=== PATIENT | male | born 1960 | race Caucasian/White ===

== ENCOUNTER 2023-03-10 00:09 | Emergency (ER) | payer OTHER, SELFPAY ==
--- NOTE | 2023-03-10 00:47 | ED_ITS ---
HPI - CPR General: Chief Complaint: Cardiac Arrest/CPR Stated Complaint: RESP. DISTRESS Source: family and EMS History of Present Illness: 62-year-old male who collapsed outside his family's home. Family heard a collapse. They waited a couple of minutes before checking on the patient. The patient appeared to be breathing at first per family they called 911, CPR was started 10 minutes or so later. ACLS crew arrived 15 minutes after collapse, and started ACLS protocol. He has received 6 mg of epinephrine in the field along with chest compressions and intubation using an i-gel device with good breath sounds. Paramedics note no availability of pulse ox, but CO2 ranges by end-tidal of 35 or so. The patient has been in either asystole or PEA rhythm since placed on the monitor. They have not obtained a pulse at any point. In discussion with family, the patient has a history of coronary disease status post three-vessel CABG 7 or 8 years ago. He evidently had a test recently showing that at least 2 of the vessels were clogged MD complaint: found unresponsive and collapsed during activity Onset (ago): minute(s) (45) Timing confirmed by: other (EMS) Place: other (Family home) AED applied by bystander/welder first class: Yes Shock advised: No Downtime before ACLS arrival (mins): 15 Initial findings in the field: unresponsive, no respirations and no pulse ROSC in the field: No Associated injuries: No Associated symptoms: other Known history of: CAD Treatments prior to arrival: other airway device, chest compressions and epinephrine mgs # (6) Review of Systems General: Reports: ROS unobtainable due to medical condition Physical Exam Const: GENERAL APPEARANCE: patient mechanically ventilated ORIENTATION/CONSCIOUSNESS: Yes Other orientation findings (Unresponsive) HENMT: COMMON NORMALS: normocephalic and Normal external nose present HEAD & SCALP: normocephalic FACE & SINUS: normal facial exam NOSE: Normal external nose present Eye: PUPIL: Yes Dilated pupils and Yes Fixed pupils Neck/C-Spine: GENERAL: Yes trachea midline Chest: CHEST: Yes Symmetrical chest wall rise Resp: AUSCULTATION: rhonchi Cardio: PERIPHERAL PULSES: femoral pulses not present GI: INSPECTION: Yes abdominal distension Neuro: ALBERTO COMA SCALE: document GCS findings Alberto coma scale eye opening: None Goldsmith coma scale verbal response: None Goldsmith coma scale motor response: None Alberto coma scale total score: 3 MDM - Cardiac Arrest/CPR Medical Decision Making The patient received good CPR per ACLS protocol in route. There had been no rhythm changes. He received another 3 rounds of CPR with 2 more milligrams of epinephrine in the ER here as well as some bicarbonate. He had good breath sounds on arrival, and pulse ox was generating 100% with CPR. Because of this, I gel device was left in as opposed to endotracheal intubation which would have caused a pause and CPR. Despite continued CPR in the ER, there were no rhythm changes. He remained in PEA throughout the ACLS process. I spoke with the patient's brother who was representing family in the lobby while CPR continued. With no change in rhythm it was advised that we stop PCR. He consented. I talked with the patient's over the phone, as they are from out of town, and relayed expiration to her. Time of pronounced 00:19 Critical Care Time Critical Care Time: Critical Care Time: Yes Total Critical Care Time: 35 Attestation: This case had a high probability of a clinically significant, sudden, or life threatening deterioration of this patient's condition which required my full and direct attention, intervention and personal management. Management included direct care of the patient, physical exam, discussion with family, and documentation. It does not include any procedures performed Discharge Plan Discharge Patient Disposition: Clinical Impression: Cardiac arrest Coding Level of Care Code ED Dry Plasterer Helper for [facility]
--- NOTE | 2023-03-10 07:05 | PC.NURSE ---
Charge nurse Lacey to document code details. [place] visiting family when he collapsed outside on the ground. 911 called about 10 min after per family report. EMS started cpr @ 2350. PT arrival to ER I-gel and lucus assisted cpr. Prior cardiac surgery.
--- NOTE | 2023-03-10 08:04 | PC.NURSE ---
Patient arrived to ER 4 at 0009. CPR was in progress per EMS crew. IO in place. NS running by gravity through IO. Patient was transferred to ER stretcher Zoll pads and monitor were connected to patient. Pulse check was dome. No pulse at this time. 0011 1 mg of Epi was administered IO per ACLS protocol. Dr. Peter at bedside, gave orders for 1 amp of Bicarb. Bicarb administered IO per order. Patient ventilated with ambu bag via artificial airway per RT. Breath sounds were present bilaterally. Pulse check. No pulse. 0013 Pulse check. No pulse. 1 mg of epi was administered IO. 0015 Rhythm check. PEA. No pulse. No pupil response at this time. 1 mg of epi was administered IO. 0017 Rhythm check. PEA. No pulse. 1 mg of epi was administered IO. Dr. Peter to waiting room to update family. 0019 Dr. Peter at bedside to call code per family's wishes. 0[address] [facility] was notified of . [facility] reference number [id number]. Pbx Operator notified. Body was released from photo lab technician and [place] [facility] [place].
--- NOTE | 2023-03-10 20:11 | PC.NURSE ---
Body released to [facility] 03/10/2023 @ 2052
== END 2023-03-10 07:10 | disposition expired ==
PROVIDERS: Emergency Provider Emergency Medicine
DX: I46.9 Cardiac arrest, cause unspecified (principal)
CPT/HCPCS: 99285